=== PATIENT | male | born 1945 | race Caucasian/White ===

== ENCOUNTER → 2022-03-17 | Outpatient (CLI) | payer MEDICARE, OTHER ==
[~2022-03-17] MED LIST: ASPIRIN E.C. 8181 MG PO; CORDARONE200 MG/TAB PO; LOPRESSOR 225 MG/TAB PO; LOPRESSOR 550 MG/TAB PO; NITROSTAT0.4 MG/TAB SL; PRINIVIL2.5 MG PO; XARELTO STARTER20 MG PO; XARELTO20 MG PO
== END ==
LOC: COL.RAD 14:39
DX: Z12.2 Encounter for screening for malignant neoplasm of respiratory organs (principal); Z87.891 Personal history of nicotine dependence

== ENCOUNTER → 2023-04-09 | Outpatient (CLI) | payer MEDICARE, OTHER | LOC: COL.RAD 07:57 | DX: Z12.2 Encounter for screening for malignant neoplasm of respiratory organs (principal); R91.8 Other nonspecific abnormal finding of lung field; Z87.891 Personal history of nicotine dependence ==

== ENCOUNTER → 2024-04-11 | Outpatient (CLI) | payer MEDICARE, OTHER ==
[~2024-04-11] MED LIST changes: +ALDACTONE 25MG25 M1 PO; +BENADRYL25 M2 PO; +ELIQUIS 5MG PO; +TOPROL XL 25MG25 MG PO; +TOPROL XL 50MG50 MG PO; +ZYRTEC 10MG10 MG PO
== END ==
LOC: COL.RAD 08:17
DX: Z12.2 Encounter for screening for malignant neoplasm of respiratory organs (principal); R91.8 Other nonspecific abnormal finding of lung field; F17.210 Nicotine dependence, cigarettes, uncomplicated